=== PATIENT | female | born 1940 | race Caucasian/White ===

== ENCOUNTER 2021-10-16 13:11 | Outpatient (CLI) | payer OTHER | END 2021-10-16 13:12 | disposition home or self-care (01) | LOC: LAB 13:11 | PROVIDERS: ATTEND Ophthalmology | DX: H25.012 Cortical age-related cataract, left eye (principal); I10 Essential (primary) hypertension; I11.9 Hypertensive heart disease without heart failure ==

== ENCOUNTER 2023-09-20 12:32 | Emergency (ER) | payer OTHER ==
[~2023-09-20] VITALS: Ht 152.4 cm; Wt 90.7 kg
[2023-09-20] MEDS ORDERED: METOPROLOL SUC100 MG (12:42)
[2023-09-20] MEDS ORDERED: GABAPENTIN100 M2 (12:42)
[2023-09-20] MEDS ORDERED: KETOROLAC TROMETHAMINE 60 MG VIAL IM ONE (12:45)
[2023-09-20 13:12] LABS: HEMATOCRIT 39.1 % (36.0-45.00); HEMOGLOBIN 13.2 g/dL (12.0-15.00); MEAN CELL VOLUME 89.8 fL (80.00-100.00); MEAN CORPUSCULAR HEMOGLOBIN 30.4 pg (27.00-32.0); MEAN CORPUSCULAR HGB CONC 33.8 g/dl (32.0-36.0); PLATELET COUNT 324 K/uL (150-450); RED BLOOD COUNT 4.35 M/uL (4.00-6.00); RED CELL DISTRIBUTION WIDTH 12.9 % (11.5-14.5)
== END 2023-09-20 17:41 | disposition home or self-care (01) ==
LOC: ER 12:32
PROVIDERS: General Practice
DX: S09.8XXA Other specified injuries of head, initial encounter (principal); W18.30XA Fall on same level, unspecified, initial encounter; Y93.89 Activity, other specified; Y92.013 Bedroom of single-family (private) house as the place of occurrence of the external cause
CPT/HCPCS: 36415; 70450; 72100; 96372; 99284; J1885

== ENCOUNTER 2023-09-22 20:14 | Emergency (ER) | payer OTHER ==
[~2023-09-22] VITALS: Ht 152.4 cm; Wt 81.6 kg
[~2023-09-22 20:14] MED LIST: GABAPENTIN100 M2; METOPROLOL SUC100 MG
[2023-09-22] MEDS ORDERED: GLIMEPIRIDE1 MG (20:25)
[2023-09-22] MEDS ORDERED: PLAVIX75 MG PO (20:25)
[2023-09-23] MEDS ORDERED: HYOSCYAMINE SULFATE 0.125 MG TAB.SUBL SL STA (00:40)
[2023-09-23] MEDS ORDERED: FAMOTIDINE/PF 20 MG/2 ML VIAL IV PUSH STA (00:40)
[2023-09-23] MEDS ORDERED: LACTOBACILLUS ACIDOPHILUS 1 CAP CAP PO STA (00:40)
[2023-09-23] MEDS ORDERED: HYOSCYAMINE SULFATE 0.125 MG TAB.SUBL ONE (00:44)
[2023-09-23] MEDS ORDERED: LACTOBACILLUS ACIDOPHILUS 1 CAP CAP PO ONE (00:45)
[2023-09-23] MEDS ORDERED: 0.9 % SODIUM CHLORIDE 1,000 ML IV ONE (00:45)
[2023-09-23] MEDS ORDERED: FAMOTIDINE/PF 20 MG/2 ML VIAL ONE (00:45)
[2023-09-23 01:32] LABS: HEMATOCRIT 30.3 % (36.0-45.00); HEMOGLOBIN 10.2 g/dL (12.0-15.00); MEAN CELL VOLUME 89.9 fL (80.00-100.00); MEAN CORPUSCULAR HEMOGLOBIN 30.4 pg (27.00-32.0); MEAN CORPUSCULAR HGB CONC 33.8 g/dl (32.0-36.0); PLATELET COUNT 296 K/uL (150-450); RED BLOOD COUNT 3.37 M/uL (4.00-6.00); RED CELL DISTRIBUTION WIDTH 12.8 % (11.5-14.5)
[2023-09-23 02:03] LABS: ALBUMIN 2.3 gm/dL (3.4-5.0); BILIRUBIN TOTAL 0.27 mg/dL (0.3-1.2); CALCIUM 7.9 mg/dL (8.5-10.1); CREATININE SERUM 1.6 mg/dL (0.55-1.02); GFR 30.78; GLOBULINA 2.8 G/DL (2.4-3.5); POTASSIUM 3.4 mEq/L (3.5-5.1); TOTAL PROTEIN 5.1 gm/dL (6.4-8.2)
[2023-09-23 03:06] LABS: URINE APPEARANCE Clear; URINE BILIRRUBIN Negative (NEGATIVE); URINE BLOOD Negative; URINE COLOR Dark Yellow; URINE GLUCOSE Negative (NEGATIVE); URINE LEUKOCYTE Negative; URINE NITRATE Negative; URINE PROTEIN Trace (NEGATIVE)
[2023-09-23 03:09] LABS: URINE BACTERIA 62.9 uL (0.0-1933); URINE EPITHELIAL CELLS 10.3 uL (0.0-38.8); URINE WBC 4.9 uL (0.0-23.2)
[2023-09-23 03:48] LABS: URINE RBC 1.9 uL (0.0-20.8)
[2023-09-23] MEDS ORDERED: INTESTINEX680 M1 PO (09:12)
[2023-09-23] MEDS ORDERED: DOLOGESIC 500-1 EACH PO (09:12)
== END 2023-09-23 07:22 | disposition home or self-care (01) ==
LOC: ER 20:14
PROVIDERS: General Practice
DX: R19.7 Diarrhea, unspecified (principal); R53.1 Weakness; M25.552 Pain in left hip; I10 Essential (primary) hypertension
CPT/HCPCS: 36415; 73503; 96365; 96366; 99283; J3490; J7030

== ENCOUNTER 2023-10-08 17:14 | Emergency (ER) | payer OTHER ==
[~2023-10-08] VITALS: Ht 152.4 cm; Wt 81.6 kg
[~2023-10-08 17:14] MED LIST changes: +DOLOGESIC 500-1 EACH PO; +GLIMEPIRIDE1 MG; +INTESTINEX680 M1 PO; +PLAVIX75 MG PO
[2023-10-08] MEDS ORDERED: NEURONTIN300 MG PO (17:37)
[2023-10-08] MEDS ORDERED: PROZAC10 MG (17:38)
[2023-10-08 17:59] LABS: HEMATOCRIT 32.7 % (36.0-45.00); HEMOGLOBIN 10.9 g/dL (12.0-15.00); MEAN CORPUSCULAR HEMOGLOBIN 30.4 pg (27.00-32.0); MEAN CORPUSCULAR HGB CONC 33.4 g/dl (32.0-36.0); PLATELET COUNT 303 K/uL (150-450); RED BLOOD COUNT 3.59 M/uL (4.00-6.00); RED CELL DISTRIBUTION WIDTH 12.8 % (11.5-14.5)
[2023-10-08 18:20] LABS: ALBUMIN 3.2 gm/dL (3.4-5.0); BILIRUBIN TOTAL 0.28 mg/dL (0.3-1.2); CALCIUM 9.4 mg/dL (8.5-10.1); CREATININE SERUM 1.42 mg/dL (0.55-1.02); GFR 35.33; GLOBULINA 3.3 G/DL (2.4-3.5); POTASSIUM 4.78 mEq/L (3.5-5.1); TOTAL PROTEIN 6.5 gm/dL (6.4-8.2)
== END 2023-10-09 09:47 | disposition home or self-care (01) ==
LOC: ER 17:14
PROVIDERS: Emergency Medicine
DX: S09.8XXA Other specified injuries of head, initial encounter (principal); W19.XXXA Unspecified fall, initial encounter; Y93.89 Activity, other specified; Y92.098 Other place in other non-institutional residence as the place of occurrence of the external cause; Y99.8 Other external cause status; I10 Essential (primary) hypertension; E11.9 Type 2 diabetes mellitus without complications